=== PATIENT | female | born 1995 | race African-American/Black ===

== ENCOUNTER 2016-11-09 14:42 | Outpatient (CLI) | payer OTHER, MEDICAID ==
[2016-11-09 15:38] LABS: APPEARANCE,URINE SLIGHTLY-CLOUDY; BILIRUBIN,URINE NEGATIVE (NEGATIVE); GLUCOSE, URINE NEGATIVE (NEGATIVE); KETONES,URINE 20 mg/dL (NEGATIVE); LEUKOCYTE ESTERASE,URINE LARGE (NEGATIVE); NITRITE,URINE NEGATIVE (NEGATIVE); PROTEIN,URINE 30 mg/dL (NEGATIVE); UROBILINOGEN,URINE NEGATIVE mg/dL (<2.0)
[2016-11-09 15:44] LABS: AMNISURE (ROM) NEGATIVE (NEGATIVE)
[2016-11-09 15:55] LABS: URINE BARBITURATES SCREEN NEGATIVE; URINE METHADONE SCREEN NEGATIVE; URINE OPIATES LOW NEGATIVE; URINE PHENCYCLIDINE SCREEN NEGATIVE
== END 2016-11-09 16:42 | disposition home or self-care (01) ==
LOC: LC 14:42
PROVIDERS: ATTEND Specialist
PROC: 4A1HXCZ Monitoring of Products of Conception, Cardiac Rate, External Approach (ICD-10-PCS; principal; 2016-11-09)
DX: O47.1 False labor at or after 37 completed weeks of gestation (principal); Z3A.39 39 weeks gestation of pregnancy
CPT/HCPCS: 59025; 80307; 81005; 84112

== ENCOUNTER 2016-11-10 01:17 | Outpatient (CLI) | payer OTHER, MEDICAID ==
[2016-11-10 01:45] LABS: APPEARANCE,URINE SLIGHTLY-CLOUDY; BILIRUBIN,URINE NEGATIVE (NEGATIVE); GLUCOSE, URINE NEGATIVE (NEGATIVE); KETONES,URINE TRACE mg/dL (NEGATIVE); LEUKOCYTE ESTERASE,URINE MODERATE (NEGATIVE); NITRITE,URINE NEGATIVE (NEGATIVE); PROTEIN,URINE NEGATIVE (NEGATIVE); URINE SPECIFIC GRAVITY 1.006; UROBILINOGEN,URINE NEGATIVE mg/dL (<2.0)
[2016-11-10 01:59] LABS: URINE BARBITURATES SCREEN NEGATIVE; URINE METHADONE SCREEN NEGATIVE; URINE OPIATES LOW NEGATIVE; URINE PHENCYCLIDINE SCREEN NEGATIVE
[2016-11-10] MEDS ORDERED: HYDROXYZINE PAMOATE 50 MG CAPSULE PO ONE (02:41)
--- NOTE | 2016-11-10 02:45 | Non Stress Test Report ---
Non Stress Test Datetime Report Generated by CPN: 11/10/2016 02:44 DEMOGRAPHIC EGA NST: 39.3 EGA NST: 39.2 INDICATION Indication for Study: Ordered by Provider; Other Indication for Study: Other Indication for Study (NST) Other: LC Indication for Study (NST) Other: LC MONITORING Monitor Explained: Monitor Explained; Test Explained; Patient Verbalized Understanding Monitor Explained: Monitor Explained; Test Explained; Other Time on Monitor: 11/10/2016 01:32 Time on Monitor: 11/09/2016 15:30 Time off Monitor: 11/10/2016 01:54 Time off Monitor: 11/09/2016 15:54 NST Duration: 22 NST Duration: 24 NST INTERVENTIONS NST Interventions: PO Hydration; Reposition Patient Physician Notified NST: DrKathleen Reddy BABY A: [id number] BABY A Movement : Present Movement : Present Contraction Frequency : 2-4 Contraction Frequency : Irr FHR Baseline : 145 FHR Baseline : 145 Accelerations : 15X15 Accelerations : 15X15 Decelerations : None Decelerations : Variable Variability : Moderate 6-25bpm Variability : Moderate 6-25bpm NST Review: Meets Criteria for Reactive NST NST Review: Meets Criteria for Reactive NST NST Review and Verified By : Geno Lew RN NST Results: Reactive NST Results: Reactive NST REPORT Report Trigger: Send Report
[2016-11-10] MEDS ORDERED: HYDROXYZINE PAMOATE 50 MG CAPSULE ONE (02:46)
== END 2016-11-10 02:52 | disposition home or self-care (01) ==
LOC: LC 01:17
PROVIDERS: ATTEND Specialist
PROC: 4A1HXCZ Monitoring of Products of Conception, Cardiac Rate, External Approach (ICD-10-PCS; principal; 2016-11-10)
DX: O47.1 False labor at or after 37 completed weeks of gestation (principal); Z3A.39 39 weeks gestation of pregnancy
CPT/HCPCS: 59025; 80307; 81005

== ENCOUNTER 2016-11-10 14:41 | Inpatient (IN) | payer OTHER, MEDICAID ==
[2016-11-10 15:35] LABS: APPEARANCE,URINE CLOUDY; BILIRUBIN,URINE NEGATIVE (NEGATIVE); GLUCOSE, URINE NEGATIVE (NEGATIVE); KETONES,URINE 20 mg/dL (NEGATIVE); LEUKOCYTE ESTERASE,URINE LARGE (NEGATIVE); NITRITE,URINE NEGATIVE (NEGATIVE); PROTEIN,URINE 30 mg/dL (NEGATIVE); URINE SPECIFIC GRAVITY 1.012; UROBILINOGEN,URINE NEGATIVE mg/dL (<2.0)
[2016-11-10 15:57] LABS: URINE BARBITURATES SCREEN NEGATIVE; URINE METHADONE SCREEN NEGATIVE; URINE OPIATES LOW NEGATIVE; URINE PHENCYCLIDINE SCREEN NEGATIVE
[2016-11-10] MEDS ORDERED: RINGERS SOLUTION,LACTATED 1,000 ML IV PRN (15:57)
[2016-11-10] MEDS ORDERED: DEXTROSE 5%-LACTATED RINGERS 1,000 ML IV ONE (15:58)
[2016-11-10] MEDS ORDERED: RINGERS SOLUTION,LACTATED 300 ML IV ONE (17:20)
[2016-11-10] MEDS ORDERED: OXYTOCIN/NORMAL SALINE 1,000 ML IV PRN (17:20)
[2016-11-10] MEDS ORDERED: ACETAMINOPHEN 325 MG TABLET ONE (17:23)
[2016-11-10] MEDS ORDERED: OXYTOCIN/NORMAL SALINE 20 UNIT/1,000 ML RTUINJ ONE (17:23)
[2016-11-10] MEDS ORDERED: AMPICILLIN SOD/SULBACTAM 3 GM VIAL ONE (17:24)
[2016-11-10] MEDS ORDERED: ACETAMINOPHEN 325 MG TABLET PO ONE (17:30)
[2016-11-10 17:38] LABS: ABSOLUTE BASOPHILS # (AUTO) 0.1 10^3/uL (0.0-0.2); ABSOLUTE LYMPHOCYTES (AUTO) 1.3 10^3/uL (0.5-4.7); ABSOLUTE MONOCYTES (AUTO) 2.1 10^3/uL (0.1-1.4); ABSOLUTE NEUT (AUTO) 14.6 10^3/uL (1.7-8.2); BASOPHILS % (AUTO) 0.7 % (0-2); HEMATOCRIT 36.8 % (36.0-47.0); HEMOGLOBIN 11.8 g/dL (12.0-15.5); HGB HCT DIFFERENCE -1.4; LYMPHOCYTES % (AUTO) 7.2 % (13-45); MEAN CORPUSCULAR HEMOGLOBIN 29.8 pg (27.0-33.4); MEAN CORPUSCULAR HGB CONC 32.1 g/dL (32.0-36.0); MEAN CORPUSCULAR VOLUME 93 fl (80-97); MONOCYTES % (AUTO) 11.8 % (3-13); RED BLOOD COUNT 3.97 10^6/uL (3.72-5.28); RED CELL DISTRIBUTION WIDTH 14.8 % (11.5-14.0); SEGMENTED NEUTROPHILS % (AUTO) 80.3 % (42-78); WHITE BLOOD COUNT 18.2 10^3/uL (4.0-10.5)
[2016-11-10] MEDS: RINGERS SOLUTION,LACTATED 1,000 ML IV PRN ×2 (17:55→23:22)
[2016-11-10] MEDS ORDERED: PHENYLEPHRINE HCL INJ/PF 10 MG/1 ML SDV ONE (23:55)
[2016-11-10] MEDS ORDERED: EPHEDRINE SULFATE INJ 50 MG/1 ML AMPULE ONE (23:55)
[2016-11-10] MEDS ORDERED: FENTANYL/BUPIVACAINE/NS/PF 200 MCG/100 ML RTUINJ EPI ONE (23:55)
[2016-11-10] MEDS ORDERED: FENTANYL CITRATE INJ/PF 100 MCG/2 ML AMPUL ONE (23:55)
[2016-11-10] MEDS ORDERED: BUPIVACAINE HCL 0.25 % INJ/PF (2.5 MG/1 ML) 30 ML VIAL ONE (23:56)
[2016-11-11] MEDS ORDERED: AMPICILLIN SOD/SULBACTAM 3 GM VIAL ONE ×2 (00:25→06:20)
[2016-11-11] MEDS: AMPICILLIN SOD/SULBACTAM 1.5 GM VIAL IV SCH ×2 (00:36→06:42)
[2016-11-11] MEDS ORDERED: FENTANYL CITRATE INJ/PF 100 MCG/2 ML AMPUL ONE ×3 (01:03→05:55)
[2016-11-11] MEDS ORDERED: CITRIC ACID/SODIUM CITRATE ORAL SOLN 15 ML UDCUP ONE (03:43)
[2016-11-11] MEDS ORDERED: CEFAZOLIN 2 GM/D5W RTU 2 GM/50 ML RTUPB IV ONE (03:44)
[2016-11-11] MEDS ORDERED: LIDOCAINE 2%/EPINEPHRINE INJ 20 ML VIAL ONE (03:46)
[2016-11-11] MEDS ORDERED: SODIUM BICARBONATE 8.4% INJ 50 MEQ/50 ML DISP.SYRIN ONE (03:46)
[2016-11-11] MEDS ORDERED: ONDANSETRON HCL INJ/PF 4 MG/2 ML SDV ONE (04:03)
[2016-11-11] MEDS ORDERED: OXYTOCIN/NORMAL SALINE 20 UNIT/1,000 ML RTUINJ ONE ×2 (04:03→05:25)
[2016-11-11] MEDS ORDERED: MIDAZOLAM 2 MG/2 ML INJ ONE (04:04)
[2016-11-11] MEDS ORDERED: MORPHINE SULFATE 10 MG/ML INJ ONE (04:04)
[2016-11-11] MEDS: RINGERS SOLUTION,LACTATED 1,000 ML IV PRN (06:09)
--- NOTE | 2016-11-11 06:33 | Delivery Summary ---
Del Sum A-C Datetime Report Generated by CPN: 11/11/2016 06:33 DELIVERY PERSONNEL DELIVERY PERSONNEL: [id number] Delivery Doctor:: Shadi Perrin DO Anesthesiologist:: Li Saucedo MD DRY CELL ASSEMBLY MACHINE TENDER:: Huang Pavon CRNA Labor and Delivery Nurse:: Anabelle Benedict RN Manager Of Internal/ROLL TESTER: [facility] Manager Of Internal/ROLL TESTER: [facility] [place] Additional Personnel: : Batool Betancourt CNA MATERNAL INFORMATION Delivery Anesthesia: Epidural Medications After Delivery: Pitocin Drip 20 Units/1000ml NSS; Methergine 0.2mg IM Maternal Complications: Chorioamnionitis LABOR SUMMARY EDC: 11/14/2016 00:00 No. Babies in Womb: 1 Attempted: No Labor Anesthesia: Epidural LABOR INFORMATION Reason for Induction: Not Applicable Onset of Labor: 11/11/2016 01:21 Oxytocin: Augmentation Group B Beta Strep: negative Antibiotics # of Doses: 0 Antibiotics Time of Last Dose: n/a Steroids Given: None Reason Steroids Not Administered: Not Applicable MEMBRANES Membranes Rupture Method: Artificial Rupture of Membranes: 11/11/2016 01:23 Length of Rupture (hr): 2.82 Amniotic Fluid Color: Clear Amniotic Fluid Amount: Moderate Amniotic Fluid Odor: Normal STAGES OF LABOR Stage 3 hr: 0 Stage 3 min: 1 Total Time in Labor hr: 2 Total Time in Labor min: 52 VAGINAL DELIVERY Laceration Repair: Not Applicable Sponge Count Correct: N/A Sharps Count Correct: N/A CSECTION DELIVERY Primary Indication: Nonreassuring Status CSection Urgency: Non-Scheduled CSection Incidence: Primary Labor: Labor Elective: N/A CSection Incision: Lower Uterine Transverse BABY A INFORMATION Infant Delivery Date/Time: 11/11/2016 04:12 Method of Delivery: Born in Route : No : N/A Forceps: N/A Vacuum Extraction: N/A Shoulder Dystocia : No PRESENTATION/POSITION BABY A Presentation: Cephalic Cephalic Presentation: Vertex Breech Presentation: N/A PLACENTA INFORMATION BABY A Placenta Delivery Time : 11/11/2016 04:13 Placenta Method of Delivery: Manual Removal Placenta Status: Delivered SCORES BABY A Heart Rate 1 min: >100 bpm Resp Effort 1 min: Good Cry Reflex Irritability 1 min: Cough or Sneeze or Pulls Away Muscle Tone 1 min: Active Motion Color 1 min: Blue/Pale Resuscitation Effort 1 min: Tactile Stimulation SCORE 1 MIN: 8 Heart Rate 5 min: >100 bpm Resp Effort 5 min: Good Cry Reflex Irritability 5 min: Cough or Sneeze or Pulls Away Muscle Tone 5 min: Active Motion Color 5 min: Body [place], Extremities Blue SCORE 5 MIN: 9 INFANT INFORMATION BABY A Gestational Age at Delivery: 39.4 Gestational Status: Full Term- 39- 40.6 Weeks Infant Outcome : Liveborn Infant Condition : Stable Sex: Female IDENTIFICATION BABY A Verification Date/Time: 11/11/2016 04:22 ID Band Number: [id number] Mother's Name Verified: Yes Infant RN Verifying Infant: B Vipin, RN Additional Verifying Personnel: A Betancourt, ROLL TESTER WEIGHT/LENGTH BABY A Birthweight (gm): 4035 Weight (lb): 8 Weight (oz): 14 Length (in): 20.50 Infant Length (cm): 52.07 CORD INFORMATION BABY A No. Cord Vessels: 3 Nuchal Cord : N/A Cord Blood Taken: Yes-For Storage (Mom's Blood type +) Infant Suction: Mouth; Nose ASSESSMENT BABY A Complications: Decreased Variability; Multiple Late Decels Physical Findings at Delivery: Caput Succedaneum; Molding of the Head Physical Findings- Other: assessment performed by Floyd Weber RN and Nicholas Monroe RN who is at bedside Respirations: Appears Normal Skin to Skin: No Marble Polisher/ALS Called : No Infant Care By: Floyd Weber RN
[2016-11-11] MEDS ORDERED: OXYCODONE-ACETAMINOPHEN 5-325 MG TABLET PO PRN (06:36)
[2016-11-11] MEDS ORDERED: PROMETHAZINE HCL INJ 25 MG/1 ML VIAL IV PRN (06:36)
[2016-11-11] MEDS ORDERED: RINGERS SOLUTION,LACTATED 1,000 ML IV PRN (06:36)
[2016-11-11] MEDS ORDERED: SIMETHICONE 80 MG TAB.CHEW PO PRN (06:36)
[2016-11-11] MEDS ORDERED: DIPH/PERTUSS(ACELL)/TETANUS VAC/PF 0.5 ML SYR (>=10YO) IM PRN (06:36)
[2016-11-11] MEDS ORDERED: ACETAMINOPHEN 325 MG TABLET PO PRN (06:36)
[2016-11-11] MEDS ORDERED: MEASLES,MUMPS&RUBELLA VACC/PF 0.5 ML VIAL SUBCUT PRN (06:36)
[2016-11-11] MEDS ORDERED: OXYTOCIN/NORMAL SALINE 20 UNIT/1,000 ML RTUINJ IV PRN (06:36)
[2016-11-11] MEDS ORDERED: KETOROLAC TROMETHAMINE INJ/PF 30 MG/1 ML SDV ONE (06:42)
[2016-11-11] MEDS ORDERED: ACETAMINOPHEN 325 MG TABLET ONE (06:54)
--- NOTE | 2016-11-11 07:02 | Admission Physical ---
Datetime Report Generated by CPN: 11/11/2016 07:02 CURRENT ADMISSION Chief Complaint: Uterine Contractions; Other Indication for Induction: Not Applicable Admit Impression- Other: Chorioamnoitis Tacycardia Admit Plan: Admit to Unit; Initiate Labor Protocol ALLERGIES Medication Allergies: No Medication Allergies: No Known Allergies (11/10/2016) Medication Allergies: No Known Allergies (11/09/2016) Medication Allergies: No Known Allergies (07/09/2011) Latex: No Latex Allergies OBSTETRICAL HISTORY EDC: 11/14/2016 00:00 : 1 Para: 0 Term: 0 : 0 SAB: 0 IAB: 0 Livin Multiple Births: 0 Gestational Diabetes: No Rh Sensitization: No Incompetent Cervix: No ERIC: No Infertility: No ART Treatment: No Uterine Anomaly: No IUGR: No Hx Previous C/S: No Macrosomia: No Hx Loss/Stillborn: No PIH: No Hx : No Placenta Previa/Abruption: No Depression/PP Depression: No PTL/PROM: No Post Hemorrhage: No Current Procedures: Ultrasound; NST Obstetrical History Comments: G1: current SEE RECORDS Alcohol: No Marijuana : No Cocaine: No Other Illicit Drugs: No Cigarettes: Never Smoker. [id number] MEDICAL HISTORY Diabetes: No Blood Transfusion: No Pulmonary Disease (Asthma, TB): No Breast Disease: No Hypertension: No Avionics Supervisor Surgery: No Heart Disease: No Hosp/Surgery: Yes Autoimmune Disorder: No Anesthetic Complications: No Kidney Disease: No Abnormal Pap Smear: No Neuro/Epilepsy: No Psychiatric Disorders: No Other Medical Diseases: No Hepatitis/Liver Disease: No Significant Family History: No Varicosities/Phlebitis: No Trauma/Violence : No Thyroid Dysfunction: No Medical History Comments: surgery: c-scope 2015, tonsilectomy 2004 INFECTIOUS HISTORY Gonorrhea: No Genital Herpes: No Chlamydia: Yes Tuberculosis: No Syphilis: No Hepatitis: No HIV/AIDS Exposure: No Rash or Viral Illness: No HPV: No Infectious History Comments: hx chlamydia PHYSICAL EXAM General: Normal HEENT: Normal Neurologic: Normal Thyroid: Deferred Heart: Normal Lungs: Normal Breast: Deferred Back: Normal Abdomen: Normal Genitourinary Exam: Normal Extremities: Normal DTRs: Normal Pelvic Type: Adequate Vital Signs: Reviewed Details Vital Signs: Temp 100.1 VAGINAL EXAM Dilatation: 3 Effacement: 80 Station: -2 MEMBRANES Membranes: Intact FETUS A EGA: 39.3 Monitoring: External US FHR- Baseline: 165 Variability: Moderate 6-25bpm Accelerations: 10X10 Decelerations: None FHR Category: Category II Admit Comment: Will admit for labor induction for suspected choiroamniitis Will start UnaSyn PLANS FOR LABOR AND DELIVERY Labor and Delivery: None Pain Management: Medications; Local; Epidural Feeding Preference: Breast Benefit of Breast Feed Discussed: Yes Circumcision: N/A INFORMED CONSENT Signature: with User ID: [email or web address]
--- NOTE | 2016-11-11 08:02 | PDOC PROGRESS REPORT ---
Subjective-OB Subjective: Post Delivery Day: 21 year old. Denies any needs at this time Doing well, pain under control, family at BS, taking liquids, no nausea, scant lochia Physical Exam (OB) Vital Signs: Intake & Output 11/10/16 11/11/16 11/12/16 06:59 06:59 06:59 Weight 77.95 kg Objective-Diagnostic Laboratory: 11/10/16 17:30 11/10/16 11/10/16 11/10/16 15:00 17:30 17:30 WBC 18.2 H RBC 3.97 Hgb 11.8 L Hct 36.8 MCV 93 MCH 29.8 MCHC 32.1 RDW 14.8 H Plt Count 220 Seg Neutrophils % 80.3 H Lymphocytes % 7.2 L Monocytes % 11.8 Eosinophils % 0.0 Basophils % 0.7 Absolute Neutrophils 14.6 H Absolute Lymphocytes 1.3 Absolute Monocytes 2.1 H Absolute Eosinophils 0.0 Absolute Basophils 0.1 Urine Color YELLOW Urine Appearance CLOUDY Urine pH 8.0 Ur Specific Carmen 1.012 Urine Protein 30 H Urine Glucose (UA) NEGATIVE Urine Ketones 20 H Urine Blood LARGE H Urine Nitrite NEGATIVE Ur Leukocyte Esterase LARGE H Blood Type A POSITIVE Antibody Screen NEGATIVE Assessment and Plan(PN) - Assessment and Plan (1) Delivery by emergency caesarean section Is this a current diagnosis for this admission?: Yes - Time Spent with Patient Time with patient: Less than 15 minutes Medications reviewed and adjusted accordingly: Yes - Disposition Anticipated Discharge: Home Within: within 48 hours
[2016-11-11] MEDS: HYDROMORPHONE HCL INJ/PF 2 MG/ML AMPULE IV PRN ×2 (08:06→13:36)
[2016-11-11] MEDS: DOCUSATE SODIUM 100 MG CAPSULE PO SCH ×2 (10:45→18:08)
[2016-11-11] MEDS: PRENATAL VITAMIN W-O CA NO5/FE FUMARATE/FA CAPSULE PO SCH (10:45)
[2016-11-11] MEDS: KETOROLAC TROMETHAMINE INJ/PF 30 MG/1 ML SDV IV SCH ×2 (11:58→18:08)
[2016-11-11] MEDS: AMPICILLIN SODIUM/SULBACTAM NA 3 GM in NORMAL SALINE 100 ML IV SCH ×2 (14:15→20:54)
[2016-11-11] MEDS: OXYCODONE-ACETAMINOPHEN 5-325 MG TABLET PO PRN ×2 (16:29→20:53)
[2016-11-12] MEDS: IBUPROFEN 800 MG TABLET PO SCH ×4 (00:10→17:05)
[2016-11-12] MEDS: AMPICILLIN SODIUM/SULBACTAM NA 3 GM in NORMAL SALINE 100 ML IV SCH ×2 (02:01→09:50)
[2016-11-12] MEDS: OXYCODONE-ACETAMINOPHEN 5-325 MG TABLET PO PRN ×4 (03:16→20:25)
[2016-11-12 06:57] LABS: HEMATOCRIT 32.3 % (36.0-47.0); HEMOGLOBIN 10.5 g/dL (12.0-15.5); HGB HCT DIFFERENCE -0.8; MEAN CORPUSCULAR HGB CONC 32.4 g/dL (32.0-36.0); MEAN CORPUSCULAR VOLUME 93 fl (80-97); RED BLOOD COUNT 3.49 10^6/uL (3.72-5.28); WHITE BLOOD COUNT 20.6 10^3/uL (4.0-10.5)
--- NOTE | 2016-11-12 08:01 | PDOC PROGRESS REPORT ---
Subjective-OB Subjective: Post Delivery Day: 21 year old. Denies any needs at this time Feeling better today, OOB walking, + flatus, eating well, pain under control, breast feeding Physical Exam (OB) Vital Signs: Temp Pulse Resp BP Pulse Ox 98.0 F 87 18 86/38 L 96 11/12/16 04:12 11/12/16 04:12 11/12/16 04:12 11/12/16 04:12 11/12/16 04:12 Intake & Output 11/11/16 11/12/16 11/13/16 06:59 06:59 06:59 Intake Total 3660 Output Total 2650 Balance 1010 Weight 77.95 kg - PIH/Pre-Eclampsia Clonus: Negative Headache: Absent Epigastric Pain: No Visual Changes: No - Dressing Removed: No Incision: Dressing - Lochia Lochia Amount: Small 10-25 ml Lochia Color: Rubra/Red - Abdomen Description: Soft, Round Hernia Present: No Fundal Description: Firm Fundal Height: u/u - u/2 Objective-Diagnostic Laboratory: 11/12/16 06:32 11/12/16 06:32 WBC 20.6 H RBC 3.49 L Hgb 10.5 L Hct 32.3 L MCV 93 MCH 30.0 MCHC 32.4 RDW 15.0 H Plt Count 218 Assessment and Plan(PN) - Assessment and Plan (1) Delivery by emergency caesarean section Is this a current diagnosis for this admission?: Yes - Time Spent with Patient Time with patient: Less than 15 minutes Medications reviewed and adjusted accordingly: Yes - Disposition Anticipated Discharge: Home Within: within 24 hours
[2016-11-12] MEDS: PRENATAL VITAMIN W-O CA NO5/FE FUMARATE/FA CAPSULE PO SCH (09:48)
[2016-11-12] MEDS: DOCUSATE SODIUM 100 MG CAPSULE PO SCH ×2 (09:48→17:05)
[2016-11-13] MEDS: IBUPROFEN 800 MG TABLET PO SCH ×5 (00:03→23:11)
[2016-11-13] MEDS: OXYCODONE-ACETAMINOPHEN 5-325 MG TABLET PO PRN ×4 (02:11→19:45)
[2016-11-13 05:51] LABS: HEMOGLOBIN 9.3 g/dL (12.0-15.5); HGB HCT DIFFERENCE -1.1; MEAN CORPUSCULAR HEMOGLOBIN 29.8 pg (27.0-33.4); MEAN CORPUSCULAR HGB CONC 32.1 g/dL (32.0-36.0); MEAN CORPUSCULAR VOLUME 93 fl (80-97); RED BLOOD COUNT 3.12 10^6/uL (3.72-5.28); RED CELL DISTRIBUTION WIDTH 15.1 % (11.5-14.0); WHITE BLOOD COUNT 14.3 10^3/uL (4.0-10.5)
[2016-11-13] MEDS: PRENATAL VITAMIN W-O CA NO5/FE FUMARATE/FA CAPSULE PO SCH (09:27)
[2016-11-13] MEDS: DOCUSATE SODIUM 100 MG CAPSULE PO SCH ×2 (09:27→17:34)
--- NOTE | 2016-11-13 10:03 | PDOC PROGRESS REPORT ---
Subjective-OB Subjective: Post Delivery Day: 21 year old. Denies any needs at this time Physical Exam (OB) Vital Signs: Temp Pulse Resp BP Pulse Ox 98.3 F 78 15 112/56 L 100 11/13/16 07:52 11/13/16 07:52 11/13/16 07:52 11/13/16 07:52 11/13/16 07:52 Intake & Output 11/12/16 11/13/16 11/14/16 06:59 06:59 06:59 Intake Total 3660 950 Output Total 2650 Balance 1010 950 - PIH/Pre-Eclampsia Clonus: Negative Headache: Absent Epigastric Pain: No Visual Changes: No - Dressing Removed: Yes - silk tape removed and opsite dressing underneath D&I, no new drainage Incision: Well Approximated - Lochia Lochia Amount: Small 10-25 ml Lochia Color: Rubra/Red - Abdomen Description: Firm Hernia Present: No Bowel Sounds: Normoactive Flatus Presence: Present Stool: No Fundal Description: Firm Fundal Height: u/u - u/2 Objective-Diagnostic Laboratory: 11/13/16 05:38 11/13/16 05:38 WBC 14.3 H RBC 3.12 L Hgb 9.3 L Hct 29.0 L MCV 93 MCH 29.8 MCHC 32.1 RDW 15.1 H Plt Count 172 Assessment and Plan(PN) - Time Spent with Patient Medications reviewed and adjusted accordingly: Yes - Disposition Anticipated Discharge: Home
[2016-11-14] MEDS: OXYCODONE-ACETAMINOPHEN 5-325 MG TABLET PO PRN ×2 (00:43→10:08)
[2016-11-14] MEDS: IBUPROFEN 800 MG TABLET PO SCH (05:02)
--- NOTE | 2016-11-14 08:54 | PDOC DISCHARGE SUMMARY ---
Final Diagnosis Discharge Date: 11/14/16 - Final Diagnosis (1) Acute blood loss anemia Is this a current diagnosis for this admission?: Yes (2) Delivery by emergency caesarean section Is this a current diagnosis for this admission?: Yes (3) Non-reassuring electronic monitoring tracing Is this a current diagnosis for this admission?: Yes Discharge Data - Discharge Medication Home Medications: Prenat Vit Comb.10/Iron/FA/Dha [Vitafol-Ob+Dha Combo Pack] 1 tab PO DAILY Docusate Sodium [Colace 100 mg Capsule] 100 mg PO BID #60 capsule 11/14/16 Ferrous Sulfate [Iron] 1 cap PO BID #60 capsule.sa 11/14/16 Ibuprofen [Motrin 800 mg Tablet] 800 mg PO Q6 #60 tablet 11/14/16 Oxycodone HCl/Acetaminophen [Percocet 5-325 mg Tablet] 2 tab PO Q4HP PRN #30 tablet 11/14/16 Gestational Age: 39.4 Reason(s) for Admission: Onset of Labor, Ceasarean Section-Primary, Status Procedures: NST Intrapartum Procedure(s): : Low Cervical, Transverse - Data Baby 1 Female at 1 minute: 8 at 5 minutes: 9 Weight: 4035 kg Home with Mother: Yes Complications: No - Diagnosis Test Laboratory: Temp Pulse Resp BP Pulse Ox 98.1 F 73 18 114/74 100 11/14/16 04:07 11/14/16 04:07 11/14/16 04:07 11/14/16 04:07 11/14/16 04:07 11/10/16 11/10/16 11/12/16 15:00 17:30 06:32 RBC 3.97 3.49 L Hgb 11.8 L 10.5 L Hct 36.8 32.3 L Urine Opiates Screen NEGATIVE 11/13/16 05:38 RBC 3.12 L Hgb 9.3 L Hct 29.0 L Urine Opiates Screen - Discharge information/Instructions Discharge Activity: Balance Activity w/Rest, No Driving, No Lifting Over 10 Pounds, Pelvic Rest, Slowly Increase Activity, No tub bath Discharge Diet: Regular Disposition: HOME, SELF-CARE Follow up with: [facility] in: 4, Weeks
[2016-11-14 09:27] VITALS: BP 121/98
[2016-11-14] MEDS: PRENATAL VITAMIN W-O CA NO5/FE FUMARATE/FA CAPSULE PO SCH (10:07)
[2016-11-14] MEDS: DOCUSATE SODIUM 100 MG CAPSULE PO SCH (10:08)
--- NOTE | 2017-01-02 09:03 | OPERATIVE REPORT E ---
Operative Report NAME: LILIA DUENAS : 1995 AGE: 21Y DATE OF SURGERY: 11/11/2016 ROOM: 223 PREOPERATIVE DIAGNOSES: 1. Thirty-nine week 3-day intrauterine . 2. Chorioamnionitis. 3. intolerance of labor. POSTOPERATIVE DIAGNOSES: 1. Thirty-nine week 3-day intrauterine . 2. Chorioamnionitis. 3. intolerance of labor. PROCEDURE: Primary low transverse section. SURGEON: Shadi Perrin D.O. EDUCATION INTERN: None. ANESTHESIA: Epidural. COMPLICATIONS: None. PATHOLOGY: Placenta. ESTIMATED BLOOD LOSS: Six-hundred mL. FINDINGS: 1. Viable female at 4:12 a. m. on 11/11/2016, Apgars 8 at one minute and 9 at five minutes, weight pending the dictation. 2. Normal appearing bilateral fallopian tubes and ovaries. PROCEDURE: Patient was taken to the operating room where her epidural was found to be working adequately. She was placed in dorsal supine position with a leftward tilt upon the operating room table. She was then prepped and draped in normal sterile fashion. A scalpel was then used to make a Pfannenstiel skin incision. The skin incision was carried down through the subcutaneous tissues to the layer of the fascia. The fascia was then incised in the midline. Fascial incision was then extended bilaterally using the Bovie cautery. The superior fascial edge was grasped by Shirin clamps, elevated, and rectus muscles dissected off sharply and bluntly. Attention was then turned to the inferior proximal edge, which was grasped with Shirin clamps, elevated, and rectus muscles dissected off sharply and bluntly. Rectus muscles were then in the midline. Peritoneum identified and entered bluntly with the surgeon's hand. Bladder blade was inserted. A scalpel was then used to make a low transverse hysterotomy incision. The infant was found to be in the cephalic position and delivered through this incision without difficulty and atraumatically. The nose and mouth were suctioned. The cord was clamped cut and the infant was handed off to the awaiting nurses. Cord blood was obtained. The placenta was then manually removed from the uterus. The uterus was then exteriorized and cleared of all clots and debris. The hysterotomy incision was then reapproximated using 2 layers of 1-0 Vicryl in a running locking fashion. Following closure of the second layer, excellent hemostasis was noted. The uterus was then returned to the abdomen. Again, the hysterotomy incision was reinspected and found to have excellent hemostasis. The rectus muscles were then reapproximated using 1-0 Vicryl interrupted sutures. The fascia was then closed using 1-0 Vicryl in a running nonlocking fashion. The subcutaneous space was made hemostatic using Bovie cautery. The skin was then closed with dissolvable sheryl, covered with an OpSite, and then with a pressure dressing. At this point in time the procedure was terminated. All sponge, lap, and needle counts were correct x2. Patient tolerated the procedure well. Patient was taken to the recovery room in stable condition. DICTATING PHYSICIAN: Shadi Perrin DO [id number] PHY#: [id number] ID: [id number] JOB#: [id number] ACCT: [id number] cc:Shadi Perrin D.O. >
== END 2016-11-14 10:50 | disposition home or self-care (01) | DRG 765 ==
LOC: LC 14:41 → LR 17:20 → 2S 11-11 06:58
PROVIDERS: ADMIT Obstetrics & Gynecology; ATTEND Obstetrics & Gynecology
PROC: 10D00Z1 Extraction of Products of Conception, Low, Open Approach (ICD-10-PCS; principal; 2016-11-11)
PROC: 4A1HXCZ Monitoring of Products of Conception, Cardiac Rate, External Approach (ICD-10-PCS; 2016-11-11)
DX: O76 Abnormality in fetal heart rate and rhythm complicating labor and delivery (principal); O41.1230 Chorioamnionitis, third trimester, not applicable or unspecified; D62 Acute posthemorrhagic anemia; O99.02 Anemia complicating childbirth; Z3A.39 39 weeks gestation of pregnancy; Z37.0 Single live birth
CPT/HCPCS: 1961; 36415; 80307; 81005; 85025; 85027; 86592; 86850; 86900; 86901; 88307; 94760; J0295; J0690; J1170; J1885; J2250; J2270; J2370; J2405; J2590; J3010; J3490; J7120

== ENCOUNTER 2016-11-28 15:57 | Emergency (ER) | payer OTHER, MEDICAID ==
[2016-11-28] MEDS ORDERED: METOCLOPRAMIDE HCL ORAL SOLN 10 MG/10 ML UDCUP PO ONE (17:03)
[2016-11-28] MEDS ORDERED: MAG HYDROX/AL HYDROX/SIMETH SUSP 30 ML UDCUP PO ONE (17:03)
[2016-11-28] MEDS ORDERED: LIDOCAINE 2% VISCOUS SOLN 20 ML UDCUP PO ONE (17:03)
--- NOTE | 2016-11-28 17:07 | ER Document Report ---
ED Medical Screen (RME) - General Chief Complaint: Breathing Difficulty Stated Complaint: DIFFICULTY BREATHING/BACK AND RIB PAIN Time Seen by Provider: 11/28/16 16:57 Mode of Arrival: Ambulatory Information source: Patient Notes: This is a 21-year-old female who is 2-1/2 weeks status post C- section who presents with sudden onset of severe upper abdominal pain. She states that the pain began this afternoon after she took a nap. She awoke with bilateral rib cage pain. She denies shortness of breath. No pleuritic component. She has had nausea but no vomiting. She is currently breast- feeding. I have greeted and performed a rapid initial assessment of this patient. A comprehensive ED assessment and evaluation of the patient, analysis of test results and completion of the medical decision making process will be conducted by additional ED providers. TRAVEL OUTSIDE OF THE [place] IN LAST 30 DAYS: No - Related Data Allergies/Adverse Reactions: No Known Allergies Allergy (Verified 11/28/16 16:44) Past Medical History - Past Medical History Cardiac Medical History: Denies: Hx Congestive Heart Failure, Hx Coronary Artery Disease, Hx Hypertension, Hx Heart Murmur Renal/ Medical History: Denies: Hx Peritoneal Dialysis Past Surgical History: Reports: Hx Tonsillectomy. Denies: Hx Cardiac Catheterization, Hx Pacemaker, Hx Valve Replacement, Hx Vascular Surgery - Immunizations Immunizations up to date: Yes Physical Exam - Vital signs Vitals: Temp Pulse Resp BP Pulse Ox 98.4 F 77 16 109/63 99 11/28/16 16:00 11/28/16 16:00 11/28/16 16:00 11/28/16 16:00 11/28/16 16:00 - General General appearance: Appears well In distress: None - Respiratory Respiratory status: No respiratory distress Breath sounds: Normal. No: Rales, Rhonchi, Wheezing - Cardiovascular Rhythm: Regular Heart sounds: Normal auscultation, S1 appreciated, S2 appreciated - Abdominal Notes: TTP across upper abdomen, worse in epigastric area Course - Vital Signs Vital signs: Temp Pulse Resp BP Pulse Ox 98.4 F 77 16 109/63 99 11/28/16 16:00 11/28/16 16:00 11/28/16 16:00 11/28/16 16:00 11/28/16 16:00
[2016-11-28 17:38] LABS: ABSOLUTE BASOPHILS # (AUTO) 0.1 10^3/uL (0.0-0.2); ABSOLUTE EOSINOPHILS # (AUTO) 0.1 10^3/uL (0.0-0.6); ABSOLUTE NEUT (AUTO) 12.4 10^3/uL (1.7-8.2); BASOPHILS % (AUTO) 0.3 % (0-2); EOSINOPHILS % (AUTO) 0.9 % (0-6); HEMATOCRIT 37.4 % (36.0-47.0); HEMOGLOBIN 11.8 g/dL (12.0-15.5); LYMPHOCYTES % (AUTO) 12.7 % (13-45); MEAN CORPUSCULAR HEMOGLOBIN 28.7 pg (27.0-33.4); MEAN CORPUSCULAR HGB CONC 31.6 g/dL (32.0-36.0); MEAN CORPUSCULAR VOLUME 91 fl (80-97); MONOCYTES % (AUTO) 6.6 % (3-13); RED BLOOD COUNT 4.12 10^6/uL (3.72-5.28); RED CELL DISTRIBUTION WIDTH 14.4 % (11.5-14.0); SEGMENTED NEUTROPHILS % (AUTO) 79.5 % (42-78); WHITE BLOOD COUNT 15.6 10^3/uL (4.0-10.5)
[2016-11-28 17:55] LABS: ALANINE AMINOTRANSFERASE 24 U/L (9-52); ALBUMIN 3.8 g/dL (3.5-5.0); ALKALINE PHOSPHATASE 145 U/L (38-126); ANION GAP 13 (5-19); ASPARTATE AMINO TRANSFERASE 22 U/L (14-36); BILIRUBIN,DIRECT 0.4 mg/dL (0.0-0.4); BILIRUBIN,TOTAL 0.4 mg/dL (0.2-1.3); BLOOD UREA NITROGEN 13 mg/dL (7-20); CALCIUM 9.3 mg/dL (8.4-10.2); CARBON DIOXIDE 25 mmol/L (22-30); CHLORIDE 106 mmol/L (98-107); CREATININE RESULT 0.69 mg/dL (0.52-1.25); GLUCOSE 91 mg/dL (75-110); LIPASE 63.9 U/L (23-300); POTASSIUM 3.8 mmol/L (3.6-5.0); SODIUM 144.2 mmol/L (137-145); TOTAL PROTEIN 7.1 g/dL (6.3-8.2)
--- NOTE | 2016-11-28 18:51 | ER Document Report ---
ED General - General Mode of Arrival: Ambulatory Information source: Patient TRAVEL OUTSIDE OF THE [place] IN LAST 30 DAYS: No - HPI Onset: Just prior to arrival Onset/Duration: Sudden Exacerbated by: Denies Relieved by: Denies Similar symptoms previously: No Recently seen / treated by doctor: No <TAMIA MORALES - Last Filed: 11/28/16 23:56> <LEXX GERMAN - Last Filed: 12/11/16 11:17> - General Chief Complaint: Breathing Difficulty Stated Complaint: DIFFICULTY BREATHING/BACK AND RIB PAIN Time Seen by Provider: 11/28/16 16:57 Notes: Patient is a 21-year-old female who presents to the emergency room today with complaints of epigastric abdominal pain that radiates to her back. Patient states she was taking a nap when she was woken up by the pain. Patient states she had eaten chicken fingers just prior to lying down to take a nap. Patient states her symptoms relieved after GI cocktail in triage. (TAMIA MORALES) - Related Data Allergies/Adverse Reactions: No Known Allergies Allergy (Verified 11/28/16 16:44) Past Medical History - General Information source: Patient - Social History Smoking Status: Never Smoker Cigarette use (# per day): No Chew tobacco use (# tins/day): No Frequency of alcohol use: None Drug Abuse: None Lives with: Family Family History: Reviewed & Not Pertinent Patient has suicidal ideation: No Patient has homicidal ideation: No - Medical History Medical History: Negative Past Surgical History: Reports: Hx Section, Hx Tonsillectomy - Immunizations Immunizations up to date: Yes <TAMIA MORALES - Last Filed: 11/28/16 23:56> Review of Systems - Review of Systems Constitutional: No symptoms reported EENT: No symptoms reported Cardiovascular: No symptoms reported Respiratory: See HPI, Short of breath Gastrointestinal: See HPI, Abdominal pain Genitourinary: No symptoms reported Female Genitourinary: No symptoms reported Musculoskeletal: See HPI, Back pain Skin: No symptoms reported Hematologic/Lymphatic: No symptoms reported Neurological/Psychological: No symptoms reported -: Yes All other systems reviewed and negative <TAMIA MORALES - Last Filed: 11/28/16 23:56> Physical Exam <TAMIA MORALES - Last Filed: 11/28/16 23:56> <LEXX GERMAN - Last Filed: 12/11/16 11:17> - Vital signs Vitals: Temp Pulse Resp BP Pulse Ox 98.4 F 77 16 109/63 99 11/28/16 16:00 11/28/16 16:00 11/28/16 16:00 11/28/16 16:00 11/28/16 16:00 - Notes Notes: Physical Exam: General: Alert, appears well. HEENT: Normocephalic. Atraumatic. PERRL. Extraocular movements intact. Oropharynx clear. Neck: Supple. Non-tender. Respiratory: No respiratory distress. Clear and equal breath sounds bilaterally. Cardiovascular: Regular rate and rhythm. Abdominal: Non-tender. No distension. Normal Bowel Sounds. Well healing c- section scar. Back: Non-tender. No deformity or step off. Extremities: Moves all four extremities. Upper extremities: Normal inspection. Normal ROM. Lower extremities: Normal inspection. No edema. Normal ROM. Neurological: Normal cognition. AAOx4. Normal speech. Psychological: Normal affect. Normal Mood. Skin: Warm. Dry. Normal color. (TAMIA MORALES) Course - Laboratory Result Diagrams: 11/28/16 17:24 11/28/16 17:25 <TAMIA MORALES - Last Filed: 11/28/16 23:56> - Laboratory Result Diagrams: 11/28/16 17:24 11/28/16 17:25 <LEXX GERMAN - Last Filed: 12/11/16 11:17> - Re-evaluation Re-evalutation: 11/28/16 20:10 Patient presents emergency room with chief complaint of epigastric abdominal pain that radiated into the back that was relieved by a GI cocktail given up front. She is 2-1/2 weeks from a is doing well with a well -healed incision. She says she has been taking ibuprofen for the past couple days seem to irritate her stomach but is not a smoker and has no history of ulcers or bleeding. She is not associated with food no gallbladder issues does not smoke or drink alcohol. incision looks well she is well- appearing nontoxic in no acute distress after the GI cocktail serial abdominal examinations no acute tenderness guarding rebound rigidity slightly nonspecific elevated white blood count with some nonspecific nonacute urinary findings. No concerns for acute gallbladder intra-abdominal pathology. She will be discharged on Prilosec and Carafate follow primary care physician in 1-2 days and discussed reasons for ED return sooner (LEXX GERMAN) - Vital Signs Vital signs: Temp Pulse Resp BP Pulse Ox 98.4 F 74 17 114/69 99 11/28/16 16:00 11/28/16 20:20 11/28/16 20:20 11/28/16 20:20 11/28/16 20:20 - Laboratory Laboratory results interpreted by me: 11/28/16 11/28/16 11/28/16 17:24 17:25 18:55 WBC 15.6 H Hgb 11.8 L MCHC 31.6 L RDW 14.4 H Plt Count 652 H Seg Neutrophils % 79.5 H Lymphocytes % 12.7 L Absolute Neutrophils 12.4 H Alkaline Phosphatase 145 H Urine Protein 30 H Urine Ketones TRACE H Ur Leukocyte Esterase TRACE H Discharge <TAMIA MORALES - Last Filed: 11/28/16 23:56> <LEXX GERMAN - Last Filed: 12/11/16 11:17> - Discharge Clinical Impression: Abdominal pain Condition: Stable Disposition: HOME, SELF-CARE Instructions: Abdominal Pain ([facility]) Additional Instructions: Abdominal Pain There are many causes of abdominal pain. Pain can mean a serious problem requiring surgery (such as appendicitis). It can also be an innocent problem that goes away on its own (such as a viral infection). Often, time must pass to determine the cause of pain. The physician does not feel that hospitalization is necessary, at present. Things may change within the next 24 hours. Call the doctor or come back for re- examination if any problems occur, such as: (1) Pain that becomes more severe, steady, or becomes concentrated in one specific area. Also, pain that is more severe with movement or coughing. (2) Vomiting that persists or becomes more frequent. (3) Blood in the vomitus, urine, or bowel movements. Blood in the stool may have a tarry or black appearance. (4) Shaking chills or fever greater than 100 degrees F. (5) The abdomen becomes more distended or swollen. (6) Bowel movements cease. (7) Failure to improve as expected. Prescriptions: Omeprazole Magnesium [Prilosec Otc] 20 mg PO DAILY #12 tablet. Sucralfate [Carafate 1 gm Tablet] 1 gm PO ACHS #20 tablet Referrals: MARIIA DIALLO MD [Primary Care Provider] - Follow up as needed Scribe Attestation: 11/28/16 20:06 I personally performed the services described in the documentation reviewed the documentation recorded by my scribe in my presence and it accurately and completely records my words and actions (LEXX GERMAN) Scribe Documentation - Scribe Written by Jairone:: Izzy Warner, [id number] 11/28/2016 acting as scribe for :: Owen <TAMIA MORALES - Last Filed: 11/28/16 23:56>
[2016-11-28 19:17] LABS: APPEARANCE,URINE SLIGHTLY-CLOUDY; BILIRUBIN,URINE NEGATIVE (NEGATIVE); GLUCOSE, URINE NEGATIVE (NEGATIVE); KETONES,URINE TRACE mg/dL (NEGATIVE); LEUKOCYTE ESTERASE,URINE TRACE (NEGATIVE); NITRITE,URINE NEGATIVE (NEGATIVE); PROTEIN,URINE 30 mg/dL (NEGATIVE); URINE SPECIFIC GRAVITY 1.027; UROBILINOGEN,URINE NEGATIVE mg/dL (<2.0)
[2016-11-28 20:21] VITALS: BP 114/69
== END 2016-11-28 20:20 | disposition home or self-care (01) ==
LOC: ER 15:57
DX: O90.9 Complication of the puerperium, unspecified (principal); R10.13 Epigastric pain; R06.00 Dyspnea, unspecified; M54.9 Dorsalgia, unspecified; R07.81 Pleurodynia; R11.0 Nausea
CPT/HCPCS: 99284; 36415; 87086; 83690; 85025; 87088; 80053; 81001; J3490

== ENCOUNTER → 2018-07-15 | Outpatient (CLI) | payer BC ==
--- NOTE | 2018-07-15 09:16 | WOMENS IMAGING REPORT ---
EXAM DESCRIPTION: U/S ABDOMEN LIMITED COMPLETED DATE/TIME: 07/15/2018 8:41 am REASON FOR STUDY: R10.816 ABDOMINAL TENDERNESS EPIGASTRIC,R11.2, NAUSEA WITH VOMITING,UNSPECI R10.81 6 EPIGASTRIC ABDOMINAL TENDERNESS COMPARISON: None. TECHNIQUE: Dynamic and static grayscale images acquired of the abdomen and recorded on PACS. Additio nal selected color Doppler and spectral images recorded. LIMITATIONS: None. FINDINGS: PANCREAS: No abnormality seen. LIVER: The liver demonstrates normal echogenicity measuring 13.6 cm. LIVER VASCULATURE: Normal directional flow of the main portal vein and hepatic veins. GALLBLADDER: No stones. Normal wall thickness of 1.8 mm. No pericholecystic fluid. ULTRASOUND-DETECTED BUSTOS'S SIGN: Negative. INTRAHEPATIC DUCTS AND COMMON DUCT: CBD is normal measuring 3.4 mm. Intrahepatic ducts normal. INFERIOR VENA CAVA: Normal flow. AORTA: The proximal aorta measures 1.5 cm in AP diameter. The mid abdominal aorta measures 1.1 cm in AP diameter and distally 0.9 cm. RIGHT KIDNEY: The right kidney is normal measuring 10.2 x 3.6 x 5.1 cm. The echogenicity the right kidney is normal. IMPRESSION: NORMAL RIGHT UPPER QUADRANT ULTRASOUND. TECHNICAL DOCUMENTATION: JOB ID: [id number] [employer]- All Rights Reserved Reading location - IP/workstation name: [email or web address]
== END ==
LOC: WI 07:48
PROVIDERS: ATTEND Internal Medicine Gastroenterology
DX: R10.816 Epigastric abdominal tenderness (principal); R11.2 Nausea with vomiting, unspecified
CPT/HCPCS: 76705